=== PATIENT | male | born 1965 | race African-American/Black ===

== ENCOUNTER 2024-10-13 09:15 | Outpatient (RCR) | payer BC, SELFPAY | END 2024-10-31 09:30 | disposition home or self-care (01) | LOC: ANHDMC 09:15 | PROVIDERS: PCP Internal Medicine; Visit Provider Nurse Practitioner Family | DX: E11.65 Type 2 diabetes mellitus with hyperglycemia (principal); Z71.89 Other specified counseling | CPT/HCPCS: G0108 ==